=== PATIENT | female | born 1970 | race Caucasian/White ===

== ENCOUNTER 2016-12-31 14:04 | Observation (INO) ==
[2016-12-31 15:28] LABS: AGAP 11; ALBUMIN 4.8 g/dL (3.5-5.0); ALKALINE PHOSPHATASE 77 U/L (32-104); BUN 6 mg/dL (8-22); CALCIUM 8.8 mg/dL (8.8-10.2); CHLORIDE 77 mmol/L (98-107); COSMO 224; GOT 20 U/L (10-30); GPT 15 U/L (10-36); SODIUM 111 mmol/L (136-145); TCO2 23 mmol/L (25-35); TOTAL BILIRUBIN < 0.15 mg/dL (0.20-1.00); TOTAL PROTEIN 7.4 g/dL (6.3-8.3)
[2016-12-31 15:30] LABS: BASO% 0.2 % (0.0-0.8); EOS# 0.04 X1000 (0.0-0.7); EOS% 0.8 % (0.0-10.0); HEMATOCRIT 28.6 % (37.0-47.0); HEMOGLOBIN 10.7 g/dL (12.0-16.0); LYMPH# 1.04 X1000 (1.2-3.4); LYMPH% 21.9 % (20.5-51.1); MANUAL DIFF NEEDED? NO; MCH 32.3 PG (27-31); MCHC 37.4 g/dL (33-37); MCV 86.4 FL (81-99); MONO# 0.31 X1000 (0.11-0.59); MONO% 6.5 % (1.7-9.3); MPV 9.1 FL (7.4-10.4); NEUT% 70.6 % (42.2-75.2); PLT 329 X1000 (130-400); RBC 3.31 XMIL (4.2-5.4)
--- NOTE | 2016-12-31 16:13 | PROVIDER DOCUMENTATION ---
This chart was entered by Diana Victor Scribe, acting as scribe for Jaya Dunn PA. HPI-General Adult - General Chief Complaint: Abnormal Lab[s] Stated Complaint: ABNORMAL LAB{S] Time Seen by Provider: 12/31/16 15:22 Source: patient Allergies/Adverse Reactions: Patient Allergies Allergy/AdvReac Type Severity Reaction Status Date / Time No Known Allergies Allergy Verified 12/31/16 14:27 Home Medications: Home Medication List Medication Instructions Recorded Confirmed Last Taken Type Carvedilol 12.5 mg PO DAILY 01/05/14 07/02/15 02/24/15 History LISINOpril [Prinivil] 20 mg PO DAILY 01/05/14 07/02/15 02/24/15 History Levothyroxine Sodium [Levothroid] 100 mcg PO DAILY 01/05/14 07/02/15 02/24/15 History ATORVAstatin [Lipitor] 40 mg PO DAILY 02/27/15 07/02/15 02/24/15 History Dextroamphetamine/Amphetamine 30 mg PO BID 02/27/15 07/02/15 02/24/15 History [Adderall Xr 30 mg Capsule] Doxepin HCl 150 mg PO HS 02/27/15 07/02/15 02/26/15 History Omeprazole 40 mg PO DAILY 02/27/15 07/02/15 02/24/15 History Oxcarbazepine [Trileptal] 300 mg PO BID 02/27/15 07/02/15 02/24/15 History Topiramate [Topamax] 100 mg PO BID 02/27/15 07/02/15 Unknown History Ziprasidone [Geodon] 160 mg PO QHS #0 capsule 03/02/15 07/02/15 Unknown Rx Zolpidem [Ambien] 5 mg PO HS PRN PRN #15 tablet 03/02/15 07/02/15 Unknown Rx Ranitidine HCl [Zantac] 300 mg PO BID #60 tablet 07/01/15 Unknown Rx - History of Present Illness -Gen Adult Nature of Presenting Problems: Pt is a 46 y/o F presents to the ED with low sodium. Pt states recently seeing PCP and Pt states sodium was low. Pt states a sodium of 115. Pt states she drinks a lot of water and she thinks that with a combination of her meds is what causes her low sodium. Pt states hx of low sodium. Location of Pain/Injury: reports: none Pain Radiation: reports: no radiation Quality of Pain: reports: none Severity: reports: mild Onset/Duration: reports: 24 hours ago Timing: reports: still present Context/Activities at Onset: reports: light activity Modifying Factors: improves with: nothing Associated Symptoms: reports: denies symptoms Similar Symptoms Previously?: Yes Recently seen or treated by another doctor?: Yes Review of Systems - Adult - REVIEW OF SYSTEMS - ADULT Constitutional: reports: no symptoms reported Eyes: reports: no symptoms reported Ears, Nose, Mouth & Throat: reports: no symptoms reported Cardiovascular: reports: no symptoms reported Respiratory: reports: no symptoms reported Gastrointestinal: reports: no symptoms reported Genitourinary: reports: no symptoms reported Musculoskeletal: reports: no symptoms reported Integumentary: reports: no symptoms reported Neurological: reports: no symptoms reported Psychiatric: reports: no symptoms reported Endocrine: reports: no symptoms reported Hematologic/Lymphatic: reports: no symptoms reported Allergic/Immunologic: reports: no symptoms reported All Other Systems: Reviewed and Negative Past History - Adult - PAST MEDICAL HISTORY-ADULT Review of Records: reports: Nursing Assessment Review, Medications Reviewed, Social history reviewed & non-contributory. Major Childhood Illnesses: reports: denies history Cardiovascular: reports: HTN, hyperlipidemia Respiratory: reports: denies history Gastrointestinal: reports: GERD Obstetrical/Gynecological: reports: denies history Genitourinary: reports: denies history Musculoskeletal: reports: denies history Neurological: reports: denies history Psychiatric: reports: anxiety, psychiatric problems Endocrine/Immune: reports: thyroid disorder Other Conditions: reports: denies history - PRIOR SURGERIES/PROCEDURES Surgical/Procedure History: reports: cholecystectomy, hysterectomy, , orthopedic (extremity) - IMMUNIZATION STATUS Childhood Immunizations: See Nurse Assessment Flu Vaccine: See Nurse Assessment - FAMILY HISTORY Family History: diabetes - SOCIAL HISTORY Smoking: denies Substance Use: denies Living Situation: family Physical Exam-General - PHYSICAL EXAM-ADULT Initial Vital Signs Reviewed: Yes - CONSTITUTIONAL General Appearance: alert, no apparent distress. negative: lethargic, slow to respond - EYES Eyes: PERRL/EOMI, pink conjunctivae. negative: pale conjunctivae, sunken eyes - HEAD, EARS, NOSE, MOUTH & THROAT HENMT: normocephalic/atraumatic, moist mucous membranes, normal ENT inspection. negative: angioedema, hearing deficit - NECK Neck: normal inspection. negative: lymphadenopathy, tender lateral - RESPIRATORY Respiratory: chest non-tender, lungs clear, normal breath sounds. negative: crackles, stridor - CARDIOVASCULAR Cardiovascular: normal peripheral pulses, regular rate, rhythm. negative: tachycardia, systolic murmur - GASTROINTESTINAL (ABDOMEN) Abdominal Exam: normal bowel sounds, non tender, soft. negative: distended, rebound - LYMPHATIC Lymphatic: no adenopathy. negative: enlargement, streaking - MUSCULOSKELETAL Back Exam: normal inspection, no CVA tenderness, no vertebral tenderness. negative: ecchymosis, swelling Extremity: normal range of motion, normal inspection. negative: deformity, erythema - SKIN Integumentary: normal color, normal turgor, warm/dry. negative: ecchymosis, erythema, pallor - NEUROLOGIC Neurologic: grossly normal. negative: aphasia, facial droop - PSYCHIATRIC Psych/Mental Status: normal mood/affect, oriented x 3. negative: anxious, paranoid, tearful Progress - PLAN OF CARE/RESULTS Progress/Plan/Lab Results: Vital Signs - 8 hr 12/31/16 14:24 Temperature 97.8 F Pulse Rate 72 Respiratory Rate 18 Blood Pressure 165/092 O2 Sat by Pulse Oximetry 99 Laboratory Results - last 24 hr 12/31/16 12/31/16 14:44 14:44 WBC 4.75 L RBC 3.31 L Hgb 10.7 L Hct 28.6 L MCV 86.4 MCH 32.3 H MCHC 37.4 H RDW Std Deviation 10.8 L Plt Count 329 MPV 9.1 Immature Gran % (Auto) 0.0 Neut % (Auto) 70.6 Lymph % (Auto) 21.9 Schley % (Auto) 6.5 Eos % (Auto) 0.8 Baso % (Auto) 0.2 Immature Gran # (Auto) 0.00 Neut # (Auto) 3.35 Lymph # (Auto) 1.04 L Schley # (Auto) 0.31 Eos # (Auto) 0.04 Baso # (Auto) 0.01 Sodium 111 L* Potassium 4.0 Chloride 77 L Carbon Dioxide 23 L Anion Gap 11 BUN 6 L Creatinine 0.7 Estimated GFR/1.73 m2 > 60 BUN/Creatinine Ratio 9 Glucose 114 H Calculated Osmolality 224 Calcium 8.8 Total Bilirubin < 0.15 L AST 20 ALT 15 Alkaline Phosphatase 77 Total Protein 7.4 Albumin 4.8 Globulin 3.0 Albumin/Globulin Ratio 2.0 Orders Category Date Time Status CBC WITH ELECTRONIC DIFF [HEME] Stat Lab 12/31/16 14:44 Completed CMP [COMPREHENSIVE METABOLIC PANEL] [CHEM] Stat Lab 12/31/16 14:44 Completed ua [URINALYSIS PL W/POSS RFLX CULT] [URINALYSIS] Stat Lab 12/31/16 15:23 Ordered Result Diagrams: 12/31/16 14:44 12/31/16 14:44 - CONSULTS/PCP/HOSPITALIST Notification #1 *Consult/PCP/Hospitalist*: Dr. Smyth (Hospitalist) Time Discussed: 16:12 Reason/Comments: Will write orders and admit pt. Departure - Departure Date of Disposition Decision: 12/31/16 Time of Disposition Decision: 16:12 DIAGNOSIS: Hyponatremia Disposition: ADMITTED INPATIENT 09 Certified Medical Emergency: Emergent Condition: Stable Additional Freetext Instructions: ED Follow Up Instructions: You have been treated by a care provider in the Emergency Department. These instructions are being provided to you so you can have an understanding of how to care for yourself upon discharge. Upon discharge from the Emergency Department, you are responsible for making arrangements for follow-up care by a physician of your choice. Take all prescribed medications as directed. Return to the Emergency Department immediately for any new or worsening symptoms. You may call the Physician Referral phone number at [phone] to obtain a list of Physicians who are taking new patients. Referrals and Follow-Ups: Shani Wharton MD [Primary Care Provider] - - Critical Care Note This patient required my direct & personal management of CC.: No Attestation - Physician/ RADHA Attestation Patient care was provided by Advanced Practice Provider:: Yes Advanced Practice Provider:: Jaya Dunn Advanced Practice Provider documentation review:: The Mid-level provider documentation, treatment plan and medical decision making was reviewed by the physician who agrees with all treatment and medical decision making by the MLP. The physician spent face to face time with patient:: No Advanced Practice Provider documentation review:: Supervising physician onsite and consulted in the evaluation and care of this patient. The physician did not have a face to face encounter with the patient. This chart was documented by the indicated scribe, (Diana Victor, Bull) and accurately reflects the services I performed and decisions made by me, Jaya Dunn PA, as attested by the provider's signature.
[2016-12-31 16:21] LABS: URINE CULTURE PL NEEDED? NO
[2016-12-31 16:22] LABS: BILIRUBIN URINE NEGATIVE (NEGATIVE); BLOOD URINE NEGATIVE (NEGATIVE); CLARITY CLEAR (CLEAR); COLOR YELLOW; LEUKOCYTES URINE NEGATIVE (NEGATIVE); NITRITE URINE NEGATIVE (NEGATIVE); PROTEIN URINE NEGATIVE (NEGATIVE); UROBILINOGEN URINE NORMAL
[2016-12-31 16:33] LABS: URINE CAST NONE SEEN /LPF; URINE CRYSTAL NONE SEEN /HPF; URINE EPITHELIAL CELLS <10 /HPF (<10); URINE RBC <10 /HPF (<10); URINE SOURCE CLEAN CATCH; URINE WBC <10 /HPF (<10)
[2016-12-31] MEDS ORDERED: ZOFRAN IV PRN (18:03)
[2016-12-31] MEDS: NS 1,000 ML IV SCH (19:09)
[2016-12-31] MEDS ORDERED: GEODON PO SCH ×2 (21:00)
[2016-12-31] MEDS ORDERED: TRILEPTAL PO SCH ×2 (21:00)
[2016-12-31] MEDS ORDERED: SINEQUAN PO SCH (21:00)
[2016-12-31 21:01] LABS: AGAP 12; BUN 5 mg/dL (8-22); CHLORIDE 81 mmol/L (98-107); COSMO 233; POTASSIUM 3.4 mmol/L (3.5-5.1); SODIUM 117 mmol/L (136-145); TCO2 24 mmol/L (25-35)
[2016-12-31] MEDS ORDERED: D5 1/2 NS 1,000 ML IV SCH (22:23)
[2016-12-31] MEDS: SINEQUAN PO SCH (22:35)
[2016-12-31] MEDS: KLONOPIN PO PRN (22:37)
[2016-12-31] MEDS: AMBIEN PO PRN (22:37)
[2016-12-31] MEDS: D5 1/2 NS 1,000 ML IV SCH (22:51)
[2016-12-31] MEDS: TYLENOL PO PRN (22:52)
[2017-01-01 02:33] LABS: AGAP 10; BUN 7 mg/dL (8-22); CALCIUM 8.4 mg/dL (8.8-10.2); CHLORIDE 87 mmol/L (98-107); COSMO 241; POTASSIUM 3.8 mmol/L (3.5-5.1); TCO2 23 mmol/L (25-35)
[2017-01-01 02:39] LABS: SODIUM 120 mmol/L (136-145)
--- NOTE | 2017-01-01 05:09 | HISTORY AND PHYSICAL ---
CHIEF COMPLAINT: Weakness. HISTORY OF PRESENT ILLNESS: A 46-year-old female with a history of bipolar. Also, has had issues with hyponatremia in the past. She does drink a significant amount of water on a daily basis, up to a gallon a day. She states at least half a gallon to 3/4 of a gallon. She says for the last week she has been progressively weak, occasionally dizzy. She has never passed out. She has never had any seizure-type activity. Her last admission for this was over a year ago. She had issues with hyponatremia at that time. I do not think her sodium was less than 120. Sodium was 120, went up to 132. 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 She had no evidence of heart failure. She does see She had been on lisinopril, which she was taken off of, and doxepin, but she is currently on some of those medications previously. PAST MEDICAL HISTORY: 1. Hypertension. 2. Bipolar disorder. 3. Hypothyroidism. PAST SURGICAL HISTORY: 1. . 2. Hysterectomy. 3. Bilateral TKA. 4. Cholecystectomy. FAMILY HISTORY: Positive for diabetes and cancer. SOCIAL HISTORY: No tobacco or ethanol. ALLERGIES: No known drug allergies. MEDICATIONS: She is currently on amlodipine and valsartan 5/160, Lipitor 40 daily, brexpiprazole 3 daily, Coreg 12.5 daily, Adderall, doxepin 150 daily, Synthroid 100 daily, Trileptal 300 daily, Geodon 160 daily, and Ambien 5 daily. REVIEW OF SYSTEMS: Otherwise negative times a 10-point review of systems. PHYSICAL EXAMINATION: VITAL SIGNS: Blood pressure 173/88, heart rate of 81, respiratory rate 18, temperature 98.2 degrees, 96% on room air. GENERAL: A well-developed female, in no acute distress. HEAD: Normocephalic, atraumatic. EYES: Pupils equal, round, reactive to light. Extraocular movements were intact. EARS/NOSE/THROAT: Moist mucous membranes. NECK: Supple. CARDIOVASCULAR: Regular rate and rhythm. No murmurs, gallops, or rubs. PULMONARY: Bilateral breath sounds. Clear to auscultation. GASTROINTESTINAL: Soft, nontender, nondistended. Bowel sounds positive. EXTREMITIES: No clubbing or cyanosis. LYMPHATICS: No peripheral edema. NEUROLOGICAL: Nonfocal. LABORATORY DATA: Her sodium was 111. Hemoglobin and hematocrit of 10 and 28. ASSESSMENT AND PLAN: A 46-year-old female presenting with asymptomatic hyponatremia. 1. Hyponatremia. We will slowly correct. Goal 10-20 mEq in a day. We will initiate normal saline and follow her basic metabolic profiles. We will check urine electrolytes and follow. 2. Hypothyroidism. Check TSH. Continue Synthroid. 3. Hypertension. We may need to adjust her medications. 4. She is on a couple of medications, including doxepin, Geodon, and Trileptal, which I believe all can contribute to syndrome of inappropriate antidiuretic hormone secretion, so we will need to follow that closely. cc: MD Shani Jason MD
[2017-01-01] MEDS: LOVENOX SUBQ SCH (06:30)
[2017-01-01] MEDS: NS 1,000 ML IV SCH (06:30)
[2017-01-01 06:52] LABS: AGAP 11; BUN 6 mg/dL (8-22); CALCIUM 8.6 mg/dL (8.8-10.2); CHLORIDE 86 mmol/L (98-107); COSMO 237; POTASSIUM 3.6 mmol/L (3.5-5.1); TCO2 21 mmol/L (25-35)
[2017-01-01 06:53] LABS: SODIUM 118 mmol/L (136-145)
[2017-01-01 06:55] LABS: HEMOGLOBIN 9.2 g/dL (12.0-16.0); MCHC 35.4 g/dL (33-37); MCV 87.5 FL (81-99); MPV 8.6 FL (7.4-10.4); RBC 2.97 XMIL (4.2-5.4)
[2017-01-01] MEDS: SYNTHROID PO SCH (08:20)
[2017-01-01] MEDS: COREG PO SCH (08:21)
[2017-01-01] MEDS: NORVASC PO SCH (08:21)
[2017-01-01] MEDS: ADDERALL XR PO SCH ×2 (10:07→13:40)
[2017-01-01] MEDS: PATIENT'S OWN MED PO SCH (10:09)
[2017-01-01] MEDS: TYLENOL PO PRN ×2 (11:47→21:14)
[2017-01-01] MEDS: D5 1/2 NS 1,000 ML IV SCH (12:46)
[2017-01-01] MEDS ORDERED: NS 1,000 ML IV SCH ×3 (12:54→23:20)
[2017-01-01 14:02] LABS: AGAP 13; BUN 6 mg/dL (8-22); CALCIUM 8.3 mg/dL (8.8-10.2); CHLORIDE 85 mmol/L (98-107); COSMO 243; POTASSIUM 3.8 mmol/L (3.5-5.1); TCO2 22 mmol/L (25-35)
[2017-01-01 14:09] LABS: SODIUM 119 mmol/L (136-145)
[2017-01-01] MEDS: KLONOPIN PO PRN (17:58)
--- NOTE | 2017-01-01 19:23 | PROGRESS NOTE ---
DATE: 01/01/2017 SUBJECTIVE: Patient has no focal complaints. OBJECTIVE: Vital signs: Blood pressure 148/86, heart rate 65, respiratory rate 18. Cardiovascular: Regular rate and rhythm. Pulmonary: Bilateral breath sounds. Clear to auscultation. GI: Soft, nontender, nondistended. Bowel sounds are positive. Neurological: Nonfocal. LABORATORY STUDIES: White count 3, hemoglobin and hematocrit 9 and 26, platelets 304,000. Sodium is up to 119, I think the peak was 120, free T4 is normal but TSH is high. PROBLEM LIST: 1. Hyponatremia symptomatic. We will continue normal saline infusion and follow. I think probably this is psychogenic polydipsia or unintentional water intoxication because I think she just drinks too much free water and we talked about just fluid restriction at least at 2 L total a day. 2. Hypothyroidism appears to be controlled, free T4 is normal, TSH is a bit high, just watch that. 3. Bipolar disorder. Seems to be controlled on her current medications. DISPOSITION: Plan for discharge when sodium levels above 130 hopefully in next 24 hours. cc: Oscar Smyth MD
[2017-01-01 19:29] LABS: AGAP 12; BUN 5 mg/dL (8-22); CHLORIDE 88 mmol/L (98-107); COSMO 247; POTASSIUM 4.3 mmol/L (3.5-5.1); SODIUM 123 mmol/L (136-145); TCO2 24 mmol/L (25-35)
[2017-01-01] MEDS ORDERED: KLONOPIN PO ONE ×2 (20:49→23:15)
[2017-01-01] MEDS ORDERED: TRILEPTAL PO SCH (21:00)
[2017-01-01] MEDS ORDERED: GEODON PO SCH (21:00)
[2017-01-01] MEDS ORDERED: LIPITOR PO SCH (21:00)
[2017-01-01] MEDS: SINEQUAN PO SCH (21:11)
[2017-01-01] MEDS: AMBIEN PO PRN (21:11)
[2017-01-02 01:56] LABS: AGAP 9; BUN 4 mg/dL (8-22); CALCIUM 8.5 mg/dL (8.8-10.2); CHLORIDE 93 mmol/L (98-107); COSMO 247; SODIUM 124 mmol/L (136-145); TCO2 22 mmol/L (25-35)
[2017-01-02] MEDS ORDERED: KLONOPIN PO PRN (03:00)
[2017-01-02] MEDS ORDERED: NS 1,000 ML IV SCH (03:23)
[2017-01-02] MEDS: NS 1,000 ML IV SCH ×2 (04:37→17:56)
[2017-01-02 06:07] LABS: HEMATOCRIT 27.7 % (37.0-47.0); HEMOGLOBIN 9.7 g/dL (12.0-16.0); MCH 31.6 PG (27-31); MCV 90.2 FL (81-99); MPV 8.9 FL (7.4-10.4); RBC 3.07 XMIL (4.2-5.4)
[2017-01-02] MEDS: LOVENOX SUBQ SCH (06:16)
[2017-01-02] MEDS: SYNTHROID PO SCH (06:16)
[2017-01-02 06:30] LABS: AGAP 9; BUN 4 mg/dL (8-22); CALCIUM 8.8 mg/dL (8.8-10.2); CHLORIDE 95 mmol/L (98-107); COSMO 251; POTASSIUM 4.3 mmol/L (3.5-5.1); SODIUM 126 mmol/L (136-145); TCO2 22 mmol/L (25-35)
[2017-01-02] MEDS: NORVASC PO SCH (08:45)
[2017-01-02] MEDS: COREG PO SCH (08:45)
[2017-01-02] MEDS: ADDERALL XR PO SCH ×2 (08:45→14:16)
[2017-01-02] MEDS: PATIENT'S OWN MED PO SCH (08:56)
[2017-01-02] MEDS: TYLENOL PO PRN ×2 (09:04→17:59)
[2017-01-02 15:41] VITALS: BP 144/80
--- NOTE | 2017-01-02 16:19 | PROGRESS NOTE ---
DATE: 01/02/2017 SUBJECTIVE: The patient has no complaints except she is just kind of anxious. OBJECTIVE: Blood pressure is 142/77, heart rate 68, respiratory rate 20, temperature 97.8. General: Well-developed female in no acute distress. Cardiovascular: Regular rate and rhythm. Pulmonary: Bilateral breath sounds clear to auscultation. GI: Soft, nontender and nondistended. Bowel sounds are positive. Extremities: No clubbing or cyanosis. Lymphatic: No peripheral edema. Neurologic: Nonfocal. DIAGNOSTIC DATA: Hemoglobin and hematocrit are 9 and 27, white count 3, platelets 333. Sodium 124. ASSESSMENT: 1. 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 She seems to be doing better on fluid restriction. Sodium has come up to 126. I think by later today it will be above 130, and I think she will probable be safe for discharge. If not, we will monitor another 24 hours. 2. Hypothyroidism, appears to be controlled on her current dose of Synthroid. TSH is high, but free T4 is normal. 3. Bipolar disorder. She is very anxious, but some of that she admits to a dose or two of her medications. DISPOSITION: If stable, home later today versus a.m. cc: Oscar Smyth MD
[2017-01-02 18:25] LABS: AGAP 10; BUN 5 mg/dL (8-22); CHLORIDE 99 mmol/L (98-107); COSMO 265; POTASSIUM 3.9 mmol/L (3.5-5.1); SODIUM 132 mmol/L (136-145); TCO2 23 mmol/L (25-35)
--- NOTE | 2017-01-27 18:21 | DISCHARGE SUMMARY ---
ADMISSION DATE: 12/31/2016 DISCHARGE DATE: 01/02/2017 DISCHARGE DIAGNOSES: 1. Hyponatremia. 2. Hypothyroidism. 3. Bipolar disorder. ADMIT DIAGNOSES: 1. Hyponatremia. 2. Hypothyroidism. 3. Bipolar disorder. HISTORY AND HOSPITAL COURSE: Briefly, this is a 46-year-old female admitted on the for symptomatic hyponatremia. She presents with significant possibly psychogenic polydipsia. She has had issues of hyponatremia before. She was placed on fluid resuscitation. She had been on several psychiatric medications. Her initial sodium was 111. On the her sodium had increased to 120, 119. Clinically she has slowly improved. She was placed on fluid restriction. On the she had stabilized. His sodium was up to 124. She was maintained on her regular sodium. Hypothyroidism seemed well controlled. Her repeat sodium done at around almost 6 p.m. was 132 and she was felt stable for discharge. She was discharged on fluid restriction and her regular medications. DISCHARGE MEDICATIONS: Amlodipine valsartan 5/160, Lipitor 40, brexpiprazole 3 daily, Coreg 12.5 daily, Adderall 30 b.i.d., doxepin 150 daily, Synthroid 100 daily, Trileptal 900 at bedtime, Geodon 160, and Ambien. DISCHARGE INSTRUCTIONS: She was told to follow up with her PCP in 1 week for evaluation of her sodium and put on fluid restriction. PRIMARY CARE PHYSICIAN: Shani Wharton MD. TIME SPENT: 32 minute discharge. cc: Oscar Smyth MD
== END 2017-01-02 19:30 | disposition home or self-care (01) ==
LOC: P.ED 14:04 → P.MEDSURG 16:51 → INTOOBSV 16:51
PROVIDERS: ATTEND Internal Medicine